=== PATIENT | male | born 1960 | race Caucasian/White ===

== ENCOUNTER 2019-08-28 09:24 | Observation (INO) | payer OTHER ==
[~2019-08-28] VITALS: Ht 182.9 cm; Wt 83.9 kg
[~2019-08-28 09:24] MED LIST: ASPI81CH PO; CYAN1000 PO; DIAZ5 PO; DILT180; DILT30; ERGO400 PO; ESOM20; HYDACE5 PO; MULVIT PO; MULVITMIND PO; NITR.6SL SL; OXYACE5T PO; PRED20 PO; SILD25T PO; TAMS.4ER PO
[2019-08-28] MEDS ORDERED: Prozac20 MG PO (09:36)
[2019-08-28] MEDS ORDERED: FINA5 PO (09:36)
[2019-08-28] MEDS ORDERED: TAMS.4ER PO (09:37)
[2019-08-28] MEDS ORDERED: CYCL10 PO (09:37)
[2019-08-28] MEDS ORDERED: MONT10T PO (09:37)
[2019-08-28] MEDS ORDERED: GABA100 PO (09:37)
[2019-08-28] MEDS ORDERED: LIDO5TO TOP (09:37)
[2019-08-28] MEDS ORDERED: NEBI5 PO (09:37)
[2019-08-28] MEDS ORDERED: BENZ100A PO (09:38)
[2019-08-28] MEDS ORDERED: NITR.4SL SL (09:38)
[2019-08-28] MEDS ORDERED: Ventolin/Prove6.7 GM INH (09:38)
[2019-08-28] MEDS ORDERED: ASPI81CH PO (09:39)
[2019-08-28 09:42] LABS: BASOPHILS ABSOLUTE AUTO 0.04 K/mm3 (0.00-0.23); BASOPHILS PERCENT AUTO 0 % (0-2); EOSINOPHILS ABSOLUTE AUTO 0.24 K/mm3 (0.00-0.68); EOSINOPHILS PERCENT AUTO 3 % (0-6); Hematocrit 45.4 % (37.0-53.0); Hemoglobin 15.8 g/dL (13.5-17.5); IMMATURE GRAN ABSOLUTE AUTO 0.02 K/mm3 (0.00-0.10); IMMATURE GRAN PERCENT AUTO 0 % (0-1); LYMPHOCYTES ABSOLUTE AUTO 1.62 K/mm3 (0.84-5.20); LYMPHOCYTES PERCENT AUTO 17 % (21-46); MONOCYTES ABSOLUTE AUTO 0.86 K/mm3 (0.16-1.47); MONOCYTES PERCENT AUTO 9 % (4-13); Mean Corpuscular HGB 34.6 pg (26.0-34.0); Mean Corpuscular HGB Conc 34.8 g/dL (31.5-36.5); Mean Corpuscular Volume 99 fL (80-100); Mean Platelet Volume 9.4 fL (9.1-12.4); NEUTROPHILS ABSOLUTE AUTO 6.93 K/mm3 (1.96-9.15); NEUTROPHILS PERCENT AUTO 71 % (41-73); Platelet Count 202 K/mm3 (150-400); RDW Coefficient Variation 12.9 % (11.7-14.2); RDW Standard Deviation 46.8 fL (35.1-46.3); Red Blood Cell Count 4.57 M/mm3 (4.30-5.90); White Blood Cell Count 9.71 K/mm3 (4.00-11.30)
[2019-08-28 10:05] LABS: Alanine Aminotransfer (ALT/SGP 57 U/L (12-78); Albumin, Blood 3.1 g/dL (3.4-5.0); Albumin/Globulin Ratio 0.8 (0.8-1.8); Alk Phos 117 U/L (50-136); Anion Gap 5 mmol/L (6-16); Aspartate Aminotrans (AST/SGOT 47 U/L (12-37); Bilirubin, Total 1.1 mg/dL (0.1-1.0); Blood Urea Nitrogen 9 mg/dL (8-24); Bun/Creatinine Ratio 9.2 (12.0-20.0); CO2, Blood 27 mmol/L (21-32); Calcium, Blood 8.4 mg/dL (8.5-10.1); Chloride, Blood 107 mmol/L (98-108); Creatinine, Blood 0.98 mg/dL (0.60-1.20); Globulin, Blood 3.7 g/dL (2.2-4.0); Glomerular Filtration Rate >60 (60-); Glucose, Blood 116 mg/dL (70-99); Potassium, Blood 3.4 mmol/L (3.5-5.5); Sodium, Blood 139 mmol/L (136-145); Total Protein, Blood 6.8 g/dL (6.4-8.2); Troponin I <0.015 ng/mL (0.000-0.040)
--- NOTE | 2019-08-28 13:10 | NUR ---
PT ASSUME CARE PT RECEIVED FROM [facility] ARRIVED VIA STRETCHER, REPORT RECEIVED FROM KELY SNIDER. PT IS ALERT AND ORIENTED X 4, AMBULATORY AND IS HERE FOR CHEST PAIN. PT CURRENTLY HAS NITRO PATCH ON, PT DENIES ANY CHEST PAIN/PRESSURE AT THIS TIME. HRR SINUS SUDHEER AT 51, BP SYSTOLIC 130'S. THE REST OF THE VITALS STABLE. SATS ABOVE 95% ON ROOMAIR, ABLE TO MAKE NEEDS KNOWN. CALL LIGHTS WITHIN REACH WILL MONITOR
--- NOTE | 2019-08-28 15:57 | NUR ---
PT TO DISCHARGE PER DR ARNOLD'S ORDER, TROPONIN STILL NEGATIVE ON THE 2ND DRAW, ECHOCARDIGRAM SHOWS 72% EF. PT IS CURRENTLY NOT C/O ANY CHEST PAIN AND PRESSURE. SUGGESTIVE OF HEARTBURN OR GI ISSUES, PT TO START TAKING OMEPRAZOLE AT HOME DAILY.
[2019-08-28] MEDS ORDERED: OMEP20ER PO (16:22)
== END 2019-08-28 17:01 | disposition home or self-care (01) ==
LOC: ER 09:24 → PCU 09:25
PROVIDERS: Emergency Medicine; ADMIT Internal Medicine
DX: R07.89 Other chest pain (principal); E87.6 Hypokalemia; N40.0 Benign prostatic hyperplasia without lower urinary tract symptoms; I10 Essential (primary) hypertension; Z88.1 Allergy status to other antibiotic agents; Z88.5 Allergy status to narcotic agent; Z79.84 Long term (current) use of oral hypoglycemic drugs; Z79.899 Other long term (current) drug therapy; Z79.82 Long term (current) use of aspirin
CPT/HCPCS: 36415; 71045; 80053; 83690; 84484; 85025; 85651; 93005; 93010; 93306; 96372; 99285-25; A9270-GY; G0378; J1650